=== PATIENT | female | born 1990 | race American Indian/Alaskan Native ===

== ENCOUNTER 2018-08-16 18:29 | Emergency (ER) | payer SELFPAY ==
[2018-08-16 18:47] VITALS: BP 136/85
== END 2018-08-16 19:41 | disposition left against medical advice (07) ==
LOC: ED 18:29
DX: R07.89 Other chest pain (principal); Z53.21 Procedure and treatment not carried out due to patient leaving prior to being seen by health care provider
CPT/HCPCS: 93005; 93010

== ENCOUNTER 2019-12-28 16:46 | Emergency (ER) | payer SELFPAY ==
[2019-12-28 17:13] VITALS: BP 127/68
--- NOTE | 2019-12-28 18:34 | Emergency Department Report ---
ED ENT HPI - General Chief complaint: Dental/Oral Stated complaint: SWOLLEN JAW Time Seen by Provider: 12/28/19 18:29 Source: patient Mode of arrival: Ambulatory Limitations: No Limitations - History of Present Illness Initial comments: 29-year-old English female presents emerged department complaining of acute on chronic dental pain which this exacerbation was flared up after eating hot wings with lemon pepper sprinkles. She states that the pain is dull and throbbing and worse with chewing and palpation. No fevers, chills, sweats no odynophagia or dysphagia. No neck pain. MD complaint: tooth pain Location: tooth # Severity: moderate Quality: aching, dull Consistency: constant Improves with: none Worsens with: eating Context- Dental: history of dental caries, poor dental care Associated Symptoms: toothache - Related Data Previous Rx's Medication Instructions Recorded Last Taken Type Amoxicillin [Amoxicillin TAB] 875 mg PO BID #20 tablet 12/28/19 Unknown Rx Chlorhexidine Mouthwash [Peridex] 15 ml MM BID #1 bottle 12/28/19 Unknown Rx Lidocaine Viscous 2% 5 ml MM Q3H PRN #120 udc 12/28/19 Unknown Rx traMADoL [Ultram] 50 mg PO Q6HR PRN #20 tablet 12/28/19 Unknown Rx Allergies Allergy/AdvReac Type Severity Reaction Status Date / Time No Known Allergies Allergy Verified 08/16/18 18:47 ED Dental HPI - General Chief complaint: Dental/Oral Stated complaint: SWOLLEN JAW Time Seen by Provider: 12/28/19 18:29 Source: patient Mode of arrival: Ambulatory Limitations: No Limitations - Related Data Previous Rx's Medication Instructions Recorded Last Taken Type Amoxicillin [Amoxicillin TAB] 875 mg PO BID #20 tablet 12/28/19 Unknown Rx Chlorhexidine Mouthwash [Peridex] 15 ml MM BID #1 bottle 12/28/19 Unknown Rx Lidocaine Viscous 2% 5 ml MM Q3H PRN #120 udc 12/28/19 Unknown Rx traMADoL [Ultram] 50 mg PO Q6HR PRN #20 tablet 12/28/19 Unknown Rx Allergies Allergy/AdvReac Type Severity Reaction Status Date / Time No Known Allergies Allergy Verified 08/16/18 18:47 ED Review of Systems ROS: Stated complaint: SWOLLEN JAW Other details as noted in HPI Comment: All other systems reviewed and negative ED Past Medical Hx - Past Medical History Previous Medical History?: No 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 - Surgical History Past Surgical History?: No Additional Surgical History: tonsilectomy - Social History Smoking Status: Never Smoker Substance Use Type: Marijuana - Medications Home Medications: Home Medications Medication Instructions Recorded Confirmed Last Taken Type Amoxicillin [Amoxicillin TAB] 875 mg PO BID #20 tablet 12/28/19 Unknown Rx Chlorhexidine Mouthwash [Peridex] 15 ml MM BID #1 bottle 12/28/19 Unknown Rx Lidocaine Viscous 2% 5 ml MM Q3H PRN #120 udc 12/28/19 Unknown Rx traMADoL [Ultram] 50 mg PO Q6HR PRN #20 tablet 12/28/19 Unknown Rx ED Physical Exam - General Limitations: No Limitations General appearance: alert, in no apparent distress - Head Head exam: Present: atraumatic, normocephalic - Eye Eye exam: Present: normal appearance, PERRL Pupils: Present: normal accommodation - ENT ENT exam: Present: mucous membranes moist, TM's normal bilaterally - Expanded ENT Exam Expanded Teeth exam: Present: dental caries, dental tenderness #, gingival enlargement 1 - Dental Tenderness (With severe dental erosion and caries adjacent gingival erythema noted.) 2 - Other 3 - Other - Neck Neck exam: Present: normal inspection, full ROM - Respiratory Respiratory exam: Present: normal lung sounds bilaterally. Absent: respiratory distress, wheezes, rales, chest wall tenderness, accessory muscle use - Cardiovascular Cardiovascular Exam: Present: regular rate, normal rhythm. Absent: systolic murmur, diastolic murmur, rubs, gallop - GI/Abdominal GI/Abdominal exam: Present: soft, normal bowel sounds - Extremities Exam Extremities exam: Present: normal inspection - Back Exam Back exam: Present: normal inspection - Neurological Exam Neurological exam: Present: alert, oriented X3 - Psychiatric Psychiatric exam: Present: normal affect, normal mood - Skin Skin exam: Present: warm, dry, intact, normal color. Absent: rash ED Course Vital Signs 12/28/19 17:08 Temperature 98.1 F Pulse Rate 75 Respiratory 16 Rate Blood Pressure 127/68 [Right] O2 Sat by Pulse 98 Oximetry Critical care attestation.: If time is entered above; I have spent that time in minutes in the direct care of this critically ill patient, excluding procedure time. ED Disposition Clinical Impression: Dental infection Disposition: DC TO HOME OR SELFCARE Is pt being admited?: No Does the pt Need Aspirin: No Condition: Stable Instructions: Preventive Dental Care, Adult, Diet and Dental Disease, Dental Abscess, [id number] Prescriptions: Amoxicillin [Amoxicillin TAB] 875 mg PO BID #20 tablet Lidocaine Viscous 2% 5 ml MM Q3H PRN #120 udc PRN Reason: Pain, Moderate (4-6) Chlorhexidine Mouthwash [Peridex] 15 ml MM BID #1 bottle traMADoL [Ultram] 50 mg PO Q6HR PRN #20 tablet PRN Reason: Pain Referrals: [facility] [Outside] - 3-5 Days
== END 2019-12-28 18:45 | disposition home or self-care (01) ==
LOC: ED 16:46
DX: K02.9 Dental caries, unspecified (principal); Z90.79 Acquired absence of other genital organ(s)
CPT/HCPCS: 99281

== ENCOUNTER 2021-03-08 11:15 | Emergency (ER) | payer SELFPAY ==
--- NOTE | 2021-03-08 15:41 | Emergency Department Report ---
ED ENT HPI - General Chief complaint: Dental/Oral Stated complaint: TOOTHACHE Time Seen by Provider: 03/08/21 15:32 Source: patient Mode of arrival: Ambulatory Limitations: No Limitations - History of Present Illness Initial comments: 30-year-old -[place] female presents to the emergency room complaining of left lower tooth that was fractured on Friday. Patient states that she went to see the dentist and they told her she needed to come to the emergency room to get antibiotics as they are not able to pull the tooth. Patient denies any known drug allergies currently takes no meds on a daily basis. MD complaint: tooth pain Onset/Timin -: days(s) - Related Data Previous Rx's Medication Instructions Recorded Last Taken Type Chlorhexidine Mouthwash [Peridex] 15 ml MM BID #1 bottle 12/28/19 Unknown Rx Lidocaine Viscous 2% 5 ml MM Q3H PRN #120 udc 12/28/19 Unknown Rx Amoxicillin [Amoxicillin TAB] 875 mg PO BID #20 tablet 03/08/21 Unknown Rx traMADoL [Ultram 50 MG tab] 50 mg PO Q6HR PRN #12 tablet 03/08/21 Unknown Rx Allergies Allergy/AdvReac Type Severity Reaction Status Date / Time No Known Allergies Allergy Verified 08/16/18 18:47 ED Dental HPI - General Chief complaint: Dental/Oral Stated complaint: TOOTHACHE Time Seen by Provider: 03/08/21 15:32 Source: patient Mode of arrival: Ambulatory Limitations: No Limitations - Related Data Previous Rx's Medication Instructions Recorded Last Taken Type Chlorhexidine Mouthwash [Peridex] 15 ml MM BID #1 bottle 12/28/19 Unknown Rx Lidocaine Viscous 2% 5 ml MM Q3H PRN #120 udc 12/28/19 Unknown Rx Amoxicillin [Amoxicillin TAB] 875 mg PO BID #20 tablet 03/08/21 Unknown Rx traMADoL [Ultram 50 MG tab] 50 mg PO Q6HR PRN #12 tablet 03/08/21 Unknown Rx Allergies Allergy/AdvReac Type Severity Reaction Status Date / Time No Known Allergies Allergy Verified 08/16/18 18:47 ED Review of Systems ROS: Stated complaint: TOOTHACHE Other details as noted in HPI Comment: All other systems reviewed and negative ED Past Medical Hx - Past Medical History 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 - Surgical History Additional Surgical History: tonsilectomy - Social History Smoking Status: Never Smoker Substance Use Type: Marijuana - Medications Home Medications: Home Medications Medication Instructions Recorded Confirmed Last Taken Type Chlorhexidine Mouthwash [Peridex] 15 ml MM BID #1 bottle 12/28/19 Unknown Rx Lidocaine Viscous 2% 5 ml MM Q3H PRN #120 udc 12/28/19 Unknown Rx Amoxicillin [Amoxicillin TAB] 875 mg PO BID #20 tablet 03/08/21 Unknown Rx traMADoL [Ultram 50 MG tab] 50 mg PO Q6HR PRN #12 tablet 03/08/21 Unknown Rx ED Physical Exam - General Limitations: No Limitations General appearance: alert, in no apparent distress - Head Head exam: Present: atraumatic, normocephalic - Eye Eye exam: Present: normal appearance - ENT ENT exam: Present: normal external ear exam - Expanded ENT Exam Expanded Teeth exam: Present: fractured tooth # (19), dental tenderness # (19), gingival enlargement - Neck Neck exam: Present: normal inspection, full ROM - Respiratory Respiratory exam: Present: respiratory distress, accessory muscle use - Cardiovascular Cardiovascular Exam: Present: regular rate - Extremities Exam Extremities exam: Present: normal inspection - Back Exam Back exam: Present: full ROM - Neurological Exam Neurological exam: Present: alert, oriented X3, normal gait - Psychiatric Psychiatric exam: Present: normal affect, normal mood - Skin Skin exam: Present: warm, dry, intact, normal color. Absent: rash ED Course Vital Signs 03/08/21 13:02 Temperature 98.1 F Pulse Rate 85 Respiratory 18 Rate Blood Pressure 153/90 O2 Sat by Pulse 100 Oximetry ED Medical Decision Making - Medical Decision Making 30-year-old -[place] female presents to the emergency room complaining of left lower tooth that was fractured on Friday. Patient states that she went to see the dentist and they told her she needed to come to the emergency room to get antibiotics as they are not able to pull the tooth. Patient denies any known drug allergies currently takes no meds on a daily basis. Critical care attestation.: If time is entered above; I have spent that time in minutes in the direct care of this critically ill patient, excluding procedure time. ED Disposition Clinical Impression: Dental abscess, Fracture of tooth Disposition: HOME / SELF CARE / HOMELESS Is pt being admited?: No Does the pt Need Aspirin: No Condition: Stable Instructions: Dental Abscess, [id number], Tooth Injuries, [id number] Additional Instructions: Complete antibiotics as prescribed pain medication as needed. Do not operate heavy machinery while taking tramadol. I recommend [id number] ibuprofen 600 to 800 mg every 6-8 hours. Follow-up with a dentist. Prescriptions: Amoxicillin [Amoxicillin TAB] 875 mg PO BID #20 tablet traMADoL [Ultram 50 MG tab] 50 mg PO Q6HR PRN #12 tablet PRN Reason: Pain Referrals: PRIMARY CARE, [Primary Care Provider] - 3-5 Days [facility] [Outside] - 3-5 Days [facility] [Outside] - 3-5 Days [facility] [Outside] - 3-5 Days Time of Disposition: 15:44
[2021-03-08 16:03] VITALS: BP 140/84
== END 2021-03-08 16:03 | disposition home or self-care (01) ==
LOC: ED 11:15
DX: S02.5XXA Fracture of tooth (traumatic), initial encounter for closed fracture (principal); K04.7 Periapical abscess without sinus; F12.10 Cannabis abuse, uncomplicated; X58.XXXA Exposure to other specified factors, initial encounter; Y93.89 Activity, other specified; Y92.89 Other specified places as the place of occurrence of the external cause; Y99.8 Other external cause status
CPT/HCPCS: 99281

== ENCOUNTER 2021-05-18 14:49 | Emergency (ER) | payer SELFPAY ==
[2021-05-18 15:11] VITALS: BP 136/93
--- NOTE | 2021-05-18 17:02 | Emergency Department Report ---
ED ENT HPI - General Chief complaint: Dental/Oral Stated complaint: SWOLLEN FACE Source: patient Mode of arrival: Ambulatory Limitations: No Limitations - History of Present Illness Initial comments: 30-year-old female presents with left jaw swelling after having dental work done x 1 week ago. Patient denies any pain at present time. She states that she saw Dr. Tang and was told to come to the ED for antibiotic. Patient states she is to follow-up with dentist in 1 week. Patient denies any drooling. ,difficulty swallowing, or fever. Patient is alert and oriented x3. No acute distress. No ill appearance noted. Onset/Timin -: This morning Severity scale (0 -10): 0 Improves with: none Worsens with: none Context- Dental: history of dental caries - Related Data Previous Rx's Medication Instructions Recorded Last Taken Type Chlorhexidine Mouthwash [Peridex] 15 ml MM BID #1 bottle 12/28/19 Unknown Rx Lidocaine Viscous 2% 5 ml MM Q3H PRN #120 udc 12/28/19 Unknown Rx Amoxicillin [Amoxicillin TAB] 875 mg PO BID #20 tablet 03/08/21 Unknown Rx traMADoL [Ultram 50 MG tab] 50 mg PO Q6HR PRN #12 tablet 03/08/21 Unknown Rx Ibuprofen [Motrin] 800 mg PO Q8HR PRN 15 Days #30 05/18/21 Unknown Rx tablet Penicillin V Potassium 500 mg PO BID 10 Days #20 tab 05/18/21 Unknown Rx Allergies Allergy/AdvReac Type Severity Reaction Status Date / Time No Known Allergies Allergy Verified 08/16/18 18:47 ED Dental HPI - General Chief complaint: Dental/Oral Stated complaint: SWOLLEN FACE Source: patient Mode of arrival: Ambulatory Limitations: No Limitations - Related Data Previous Rx's Medication Instructions Recorded Last Taken Type Chlorhexidine Mouthwash [Peridex] 15 ml MM BID #1 bottle 12/28/19 Unknown Rx Lidocaine Viscous 2% 5 ml MM Q3H PRN #120 udc 12/28/19 Unknown Rx Amoxicillin [Amoxicillin TAB] 875 mg PO BID #20 tablet 03/08/21 Unknown Rx traMADoL [Ultram 50 MG tab] 50 mg PO Q6HR PRN #12 tablet 03/08/21 Unknown Rx Ibuprofen [Motrin] 800 mg PO Q8HR PRN 15 Days #30 05/18/21 Unknown Rx tablet Penicillin V Potassium 500 mg PO BID 10 Days #20 tab 05/18/21 Unknown Rx Allergies Allergy/AdvReac Type Severity Reaction Status Date / Time No Known Allergies Allergy Verified 08/16/18 18:47 ED Review of Systems ROS: Stated complaint: SWOLLEN FACE Other details as noted in HPI Constitutional: denies: chills, fever Eyes: denies: eye pain, eye discharge, vision change ENT: denies: ear pain, throat pain Respiratory: denies: cough, shortness of breath, wheezing Cardiovascular: denies: chest pain, palpitations Endocrine: no symptoms reported Gastrointestinal: denies: abdominal pain, nausea, diarrhea Genitourinary: denies: urgency, dysuria, discharge Musculoskeletal: denies: back pain, joint swelling, arthralgia Skin: denies: rash, lesions Neurological: denies: headache, weakness, paresthesias Psychiatric: denies: anxiety, depression Hematological/Lymphatic: denies: easy bleeding, easy bruising ED Past Medical Hx - Past Medical History 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 - Surgical History Additional Surgical History: tonsilectomy - Social History Smoking Status: Never Smoker Substance Use Type: Marijuana - Medications Home Medications: Home Medications Medication Instructions Recorded Confirmed Last Taken Type Chlorhexidine Mouthwash [Peridex] 15 ml MM BID #1 bottle 12/28/19 Unknown Rx Lidocaine Viscous 2% 5 ml MM Q3H PRN #120 udc 12/28/19 Unknown Rx Amoxicillin [Amoxicillin TAB] 875 mg PO BID #20 tablet 03/08/21 Unknown Rx traMADoL [Ultram 50 MG tab] 50 mg PO Q6HR PRN #12 tablet 03/08/21 Unknown Rx Ibuprofen [Motrin] 800 mg PO Q8HR PRN 15 Days #30 05/18/21 Unknown Rx tablet Penicillin V Potassium 500 mg PO BID 10 Days #20 tab 05/18/21 Unknown Rx ED Physical Exam - General Limitations: No Limitations General appearance: alert, in no apparent distress - Head Head exam: Present: atraumatic, normocephalic - Eye Eye exam: Present: normal appearance - ENT ENT exam: Present: mucous membranes moist - Neck Neck exam: Present: normal inspection - Respiratory Respiratory exam: Present: normal lung sounds bilaterally. Absent: respiratory distress - Cardiovascular Cardiovascular Exam: Present: regular rate, normal rhythm. Absent: systolic murmur, diastolic murmur, rubs, gallop - GI/Abdominal GI/Abdominal exam: Present: soft, normal bowel sounds - Extremities Exam Extremities exam: Present: normal inspection - Back Exam Back exam: Present: normal inspection - Neurological Exam Neurological exam: Present: alert, oriented X3 - Psychiatric Psychiatric exam: Present: normal affect, normal mood - Skin Skin exam: Present: warm, dry, intact, normal color. Absent: rash ED Course Vital Signs 05/18/21 15:09 Temperature 98.8 F Pulse Rate 67 Respiratory 16 Rate Blood Pressure 136/93 O2 Sat by Pulse 99 Oximetry ED Medical Decision Making - Medical Decision Making 30-year-old female presents with left jaw swelling after having dental work done x 1 week ago. Patient denies any pain at present time. She states that she saw Dr. Tang and was told to come to the ED for antibiotic. Patient states she is to follow-up with dentist in 1 week. Patient denies any drooling. ,difficulty swallowing, or fever. Patient is alert and oriented x3. No acute distress. No ill appearance noted. Physical examination show moderate edema noted to the left jaw area. No trismus noted. Uvula midline. Patient is to keep appointment with Dr. Tang for next week. Will be started on penicillin for 10 days. Rechecked the patient is resting quietly quietly and comfortable and feeling better. I discussed the results of diagnostic study, my clinical impression and the plan for further treatment with the patient. Patient agrees with plan and discharge at this present time. All question addressed. I have given the patient instruction regarding a diagnosis ,expectation ,follow- up and return precaution. I explained to the patient that emergent condition may arise and to return to the ED for new worsen and any new persisting condition. I have explained the importance of following up with the primary care physician or referral physician listed below has instructed. The patient verbalized understanding of discharge instruction. Critical care attestation.: If time is entered above; I have spent that time in minutes in the direct care of this critically ill patient, excluding procedure time. ED Disposition Clinical Impression: Dental abscess Disposition: HOME / SELF CARE / HOMELESS Is pt being admited?: No Does the pt Need Aspirin: No Condition: Stable Instructions: Dental Abscess, [id number] Additional Instructions: Take medication as prescribed Keep Appointment with Dr. Tang Prescriptions: Ibuprofen [Motrin] 800 mg PO Q8HR PRN 15 Days #30 tablet PRN Reason: Pain, Moderate (4-6) Penicillin V Potassium 500 mg PO BID 10 Days #20 tab Forms: Work/School Release Form(ED)
== END 2021-05-18 17:45 | disposition home or self-care (01) ==
LOC: ED 14:49
DX: K04.7 Periapical abscess without sinus (principal); F12.90 Cannabis use, unspecified, uncomplicated; Z90.89 Acquired absence of other organs; Z79.899 Other long term (current) drug therapy
CPT/HCPCS: 99282